=== PATIENT | female | born 1990 | race Caucasian/White ===

== ENCOUNTER 2023-10-13 10:34 | Emergency (ER) | payer BC ==
[~2023-10-13] VITALS: Ht 147.3 cm; Wt 77.1 kg
[2023-10-13] MEDS ORDERED: IBUPROFEN 600 MG TABLET ONE (11:02)
[2023-10-13] MEDS: IBUPROFEN 600 MG TABLET PO ONE (11:06)
[2023-10-13 12:31] VITALS: BP 126/72; TEMP 98; O2SAT 98
== END 2023-10-13 12:31 | disposition home or self-care (01) ==
LOC: ER 10:41
DX: M25.571 Pain in right ankle and joints of right foot (principal); F32.A Depression, unspecified; F41.9 Anxiety disorder, unspecified; Z88.8 Allergy status to other drugs, medicaments and biological substances; X50.1XXA Overexertion from prolonged static or awkward postures, initial encounter; Y93.89 Activity, other specified; Y92.89 Other specified places as the place of occurrence of the external cause; Y99.8 Other external cause status
CPT/HCPCS: 73610-TC

== ENCOUNTER 2023-10-29 15:43 | Emergency (ER) | payer BC ==
[~2023-10-29] VITALS: Ht 147.3 cm; Wt 100.7 kg
[2023-10-29 16:10] VITALS: BP 120/81; TEMP 98.3; O2SAT 98
== END 2023-10-29 16:50 | disposition home or self-care (01) ==
LOC: ER 15:45
DX: I10 Essential (primary) hypertension (principal); R51.9 Headache, unspecified; F32.A Depression, unspecified; F41.9 Anxiety disorder, unspecified; Z88.8 Allergy status to other drugs, medicaments and biological substances